=== PATIENT | male | born 1965 | race Two or more races ===

== ENCOUNTER 2016-07-25 10:20 | Emergency (ER) | payer OTHER ==
[2016-07-25 10:26] VITALS: RESP 18; TEMP 98.4; O2SAT 95
--- NOTE | 2016-07-25 12:56 | EDPHY ---
H & P Stated Complaint: r shoulder surg last /now with l calf pain Time Seen by Provider: 07/25/16 10:31 HPI/ROS: Chief complaint: Left calf pain History of present illness: This is a 51-year-old male who presents to the emergency department for left calf pain. Patient reports the onset of pain over the last day. It has been persistent. He does state last Sunday, approximately 4 days ago he had surgery on his right shoulder. Denies other precipitating factors such as trauma. He denies alleviating factors. Denies other associated signs or symptoms including no fevers, no abnormal coolness or paresthesias in the foot. No chest pain, no shortness of breath, no cough. - Personal History Current Tetanus/Diphtheria Vaccine: Yes - Medical/Surgical History Hx Asthma: No Hx Chronic Respiratory Disease: No Hx Diabetes: No Hx Cardiac Disease: No Hx Renal Disease: No Hx Cirrhosis: No Hx Alcoholism: No Hx HIV/AIDS: No Hx Splenectomy or Spleen Trauma: No Other PMH: r shoulder surg/inguinal hernia - Social History Smoking Status: Never smoked - Physical Exam Exam: General: Alert, nontoxic Skin: No lesions to the left lower extremity Musculoskeletal: Mild tenderness over the calf. Muscle compartments are soft. Patient is moving all joints in the left lower extremity in all chou well. He is ambulating well. Vascular: DP and PT pulses 2+. Neurologic: Sensation appears intact in the left leg. Constitutional: Initial Vital Signs Temperature (C) 36.9 C 07/25/16 10:23 Heart Rate 66 07/25/16 10:23 Respiratory Rate 18 07/25/16 10:23 Blood Pressure 136/85 H 07/25/16 10:23 O2 Sat (%) 95 07/25/16 10:23 O2 Delivery Mode Room Air Allergies/Adverse Reactions: No Known Allergies Allergy (Unverified 07/25/16 10:22) Home Medications: Medication Instructions Recorded IBUPROFEN 07/25/16 Omeprazole 07/25/16 VITAMIN D 07/25/16 traMADol 07/25/16 Medical Decision Making - Diagnostics Imaging Results: Imaging Impressions Extremity Venous Study 07/25/16 10:34 Impression: No evidence of deep vein thrombosis in the left lower extremity. Results discussed with Harmeet Lechuga. Imaging: Discussed imaging studies w/ call center coordinator Radiologist ED Course/Re-evaluation: Patient seen under the supervision of my secondary supervising physician Dr. Sudhir Adam. Patient presents to the emergency department for left calf pain. The leg is neurovascularly intact. Physical exam is benign. Ultrasound is negative for DVT. My suspicion for serious underlying pathology is low. Patient is discharged home. Home care is discussed. He is asked to follow up with his primary care doctor for recheck. Return precautions are given. Patient voiced understanding and agreement with plan. Differential Diagnosis: Included but not limited to superficial thrombophlebitis, DVT, arterial occlusion, strain or sprain, unlikely bony fracture - Data Points Medications Given: Discontinued Medications Oxycodone/Acetaminophen (Percocet 5/325) 1 tab PO EDNOW ONE Stop: 07/25/16 13:24 Last Admin: 07/25/16 13:25 Dose: 1 tab Departure - Departure Disposition: Home, Routine, Self-Care Clinical Impression: Pain of left calf Condition: Good Instructions: Leg Cramps (ED) Additional Instructions: Follow-up with your primary care doctor this week for recheck If symptoms worsen or new symptoms develop return to the emergency room for recheck Referrals: Odessa Sheth MD [Primary Care Provider] - As per Instructions
[2016-07-25] MEDS ORDERED: OXYCODONE/APAP 5/325 TAB PO ONE (13:23)
[2016-07-25 13:24] VITALS: BP 124/76; PULSE 74
== END 2016-07-25 13:54 | disposition home or self-care (01) ==
DX: M79.605 Pain in left leg (principal)